=== PATIENT | female | born 1985 | race Caucasian/White ===

== ENCOUNTER 2017-01-20 12:08 | Emergency (ER) | payer BC ==
[2017-01-20 12:37] VITALS: BP 121/70
--- NOTE | 2017-01-20 13:58 | ED ---
- HPI Summary HPI Summary: Patient is a 31yo 26 week F who presents with concern over decreased movement x 4 days. She has never had this before. Normal so far with good OBGYN follow up. She is . Denies any vaginal bleeding discharge, back pain, abdominal pain or other symptoms. She notes to some leg and feet swelling which began last week. Denies chest pain or pressure. [place] from [place] of town and OBGYN 4 hours away. She called them today who recommended she come here for evaluation. VS stable. Afebrile. Taking vitamins, but denies other. - History of Current Complaint Chief Complaint: EDOBProblems Stated Complaint: 25 WEEKS PREG HAS NOT FELT BABY MOVES , Time Seen by Provider: 01/20/17 12:16 Hx Obtained From: Patient, Family/Merchandise Displayer Chief Complaint: Concern for Demise Onset/Duration: Started Days Ago Timing: Constant Severity: Mild Current Severity: Mild Pain Intensity: 0 Location of Pain: None Character: None - Allergies/Home Medications Allergies/Adverse Reactions: Allergies Allergy/AdvReac Type Severity Reaction Status Date / Time Bacitracin Allergy Swelling Verified 01/20/17 12:13 Gold Allergy Swelling Verified 01/20/17 12:13 Lanolin Allergy Swelling Verified 01/20/17 12:13 PMH/Surg Hx/FS Hx/Imm Hx Previously Healthy: Yes Infectious Disease History: No Infectious Disease History: Denies: Traveled Outside the [place] in Last 30 Days - Social History Occupation: Employed Full-time Lives: With Family Alcohol Use: None Hx Substance Use: No Substance Use Type: Reports: None Hx Tobacco Use: No Smoking Status (MU): Never Smoked Tobacco Review of Systems Constitutional: Negative Eyes: Negative Cardiovascular: Negative Respiratory: Negative Positive: no symptoms reported, see HPI Musculoskeletal: Negative Skin: Negative Neurological: Negative Positive: Anxious All Other Systems Reviewed And Are Negative: Yes Physical Exam - Physical Exam Triage Information Reviewed: Yes Vital Signs Reviewed: Yes Appearance: Positive: Well-Appearing, Well-Nourished Skin: Positive: Warm, Skin Color Reflects Adequate Perfusion Head/Face: Positive: Normal Head/Face Inspection Eyes: Positive: Normal, GRICELDA, Conjunctiva Clear Neck: Positive: Supple, No Lymphadenopathy Respiratory/Lung Sounds: Positive: Clear to Auscultation, Breath Sounds Present Cardiovascular: Positive: Normal, RRR, Pulses are Symmetrical in both Upper and Lower Extremities Musculoskeletal: Positive: Strength/ROM Intact Psychiatric: Positive: Normal AVPU Assessment: Alert Diagnostics - Vital Signs Vital Signs Temp Pulse Resp BP Pulse Ox 01/20/17 12:30 99.8 F 90 16 121/70 100 01/20/17 12:10 99.1 F 100 20 124/73 100 - Laboratory Lab Statement: Any lab studies that have been ordered have been reviewed, and results considered in the medical decision making process. Course/Dx - Course Course Of Treatment: Patient in NAD. Called OB RN to come perform heart tones. HR measured at 160's. Mother made aware and feels improved. She is tearful on exam d/t anxiety over demise. Mother is reassured and is OK for discharge. No other symptoms reported and no other concerns. - Differential Diagnosis/HQI/PQRI: Incomplete , Spontaneous , Threatened - Diagnoses Provider Diagnoses: Decreased movement Discharge - Discharge Plan Condition: Stable Disposition: HOME Patient Education Materials: Movement (ED) Referrals: Non Staff,Doctor [Primary Care Provider] - Additional Instructions: Please follow up with OBGYN next week.
== END 2017-01-20 13:13 | disposition home or self-care (01) ==
LOC: ED 12:08
DX: O36.8120 Decreased fetal movements, second trimester, not applicable or unspecified (principal); Z3A.26 26 weeks gestation of pregnancy
CPT/HCPCS: 99282